=== PATIENT | female | born 1935 | race Caucasian/White ===

== ENCOUNTER 2018-09-04 12:04 | Emergency (ER) | payer OTHER ==
[~2018-09-04] VITALS: Ht 160 cm; Wt 80.7 kg
[~2018-09-04 12:04] MED LIST: ALBUTEROL0.09 MG/A2 INH; DAYPRO600 M1 PO; DIOVAN PO; GLUCOSAMINE PO; KEFLEX500 MG PO; LOSARTAN POTASS1 TA2 PO; NORFLEX100 MG PO; ROBITUSSIN AC 110 ML PO; SIMVASTATIN PO; SYNTHROID0.025 MG PO; VICODIN 5/500 505 MG PO; ZITHROMAX Z PA250 MG PO
[2018-09-04 12:32] LABS: BILIRUBIN NEGATIVE (NEGATIVE); BLOOD 2+ (NEGATIVE); CLARITY CLOUDY (CLEAR); COLOR YELLOW (YELLOW); GLUCOSE NEGATIVE (NEGATIVE); KETONE TRACE (NEGATIVE); LEUKO ESTERASE 3+ (NEGATIVE); NITRITE POSITIVE (NEGATIVE); SPECIFIC GRAVITY 1.025 (1.005-1.030); UROBILINOGEN 0.2 E.U./dl (0.2-1.0)
[2018-09-04 12:53] LABS: BACTERIA 3+; WBC TNTC wbc/hpf (0-5)
[2018-09-04 13:18] LABS: BASO # 0.1 10*3/uL (0.0-0.1); BASO % 0.6 % (0.0-1.0); EOS % 0.1 % (1.0-4.0); HEMATOCRIT 37.8 % (37.0-47.0); HEMOGLOBIN 12.8 g/dl (12.0-16.0); LYMPH # 0.4 10*3/uL (1.3-4.4); LYMPH % 5.1 % (27.0-41.0); MEAN CELL VOLUME 87.1 fl (81.0-99.0); MEAN CORPUSCULAR HGB 29.5 pg (27.0-31.0); MEAN CORPUSCULAR HGB CONC 33.9 g/dl (33.0-37.0); MONO # 0.7 10*3/uL (0.1-1.0); MONO % 8.6 % (3.0-9.0); NEUT # 6.6 10*3/uL (2.3-7.9); NEUT % 85.5 % (47.0-73.0); PLATELET COUNT AUTOMATED 199 10*3/uL (130-400); RED BLOOD COUNT 4.34 10*6/uL (4.10-5.10); RED CELL DISTRI WIDTH 13.1 % (0-14.5); WHITE BLOOD COUNT 7.7 10*3/uL (4.8-10.8)
[2018-09-04 13:42] LABS: ALBUMIN 3.3 gm/dl (3.1-4.5); ALKALINE PHOSPHATASE 29 U/L (45-117); BUN 25 mg/dl (7-24); CHLORIDE 105 mmol/L (98-107); CREATININE 1.05 mg/dL (0.55-1.02); LIPASE 86 U/L (73-393); POTASSIUM 4.2 mmol/L (3.5-5.1); SGOT/AST 16 IU/L (3-35); SGPT/ALT 16 U/L (12-78); SODIUM 137 mmol/L (136-145); TOTAL PROTEIN 6.6 gm/dL (6.4-8.2)
[2018-09-04] MEDS ORDERED: KEFLEX500 M1 PO (13:48)
== END 2018-09-04 14:29 | disposition home or self-care (01) ==
LOC: ED 12:04
PROVIDERS: Physician Assistant
DX: N39.0 Urinary tract infection, site not specified (principal); R53.1 Weakness; Z88.1 Allergy status to other antibiotic agents; Z88.6 Allergy status to analgesic agent; Z79.899 Other long term (current) drug therapy

== ENCOUNTER 2024-07-25 16:40 | Emergency (ER) | payer OTHER ==
[~2024-07-25] VITALS: Ht 162.5 cm; Wt 64.0 kg
[~2024-07-25 16:40] MED LIST changes: +AMLODIPINE BESYL5 MG PO; +ANASTROZOLE1 M1 PO; +CALTRATE PO; +CARAFATE1 G1 PO; +D3 DOTS50 MCG PO; +KEFLEX500 M1 PO; +LEVOTHYROXINE50 MCG PO; +LOSARTAN POTAS100 M1 PO; +OMEGA 3 PO; +OMEPRAZOLE MAGN20 MG PO; +OMNICEF300 MG PO; +PROLIA60 MG/M1 SQ; +SINGULAIR10 M1 PO; +XARE20MG PO
[2024-07-25] MEDS ORDERED: dilTIAZem Hydrochloride 25 MG/5 ML VIAL IV ONE (17:25)
[2024-07-25] MEDS ORDERED: SODIUM CHLORIDE 0.9% 1,000 ML IV ONE (17:25)
[2024-07-25] MEDS ORDERED: AMIODARONE HYD200 MG PO (17:47)
[2024-07-25] MEDS ORDERED: EXEMESTANE25 M2 PO (17:47)
[2024-07-25] MEDS ORDERED: METOPROLOL SUCC25 M2 PO (17:47)
[2024-07-25] MEDS ORDERED: DILTIAZEM 24HR180 MG PO (17:48)
[2024-07-25 17:50] LABS: BASO # 0.1 10*3/uL (0.0-0.1); BASO % 0.8 % (0.0-1.0); EOS # 0.1 10*3/uL (0.0-0.4); EOS % 2.3 % (1.0-4.0); HEMATOCRIT 39.4 % (37.0-47.0); MEAN CELL VOLUME 86.2 fl (81.0-99.0); MEAN CORPUSCULAR HGB CONC 32.5 g/dl (33.0-37.0); MONO # 0.6 10*3/uL (0.1-1.0); MONO % 9.3 % (3.0-9.0); NEUT # 4.2 10*3/uL (2.3-7.9); NEUT % 69.7 % (47.0-73.0); PLATELET COUNT AUTOMATED 211 10*3/uL (130-400); RED BLOOD COUNT 4.57 10*6/uL (4.10-5.10); RED CELL DISTRI WIDTH 14.2 % (0-14.5)
[2024-07-25 18:00] LABS: ACT PARTIAL THROMBO TIME 38.9 SECONDS (20.0-32.1)
[2024-07-25 18:12] LABS: TOTAL PROTEIN 6.3 gm/dL (6.0-8.0)
[2024-07-25 18:40] VITALS: BP 151/84
== END 2024-07-25 21:17 | disposition home or self-care (01) ==
LOC: ED 16:40
PROVIDERS: Internal Medicine
DX: I48.20 Chronic atrial fibrillation, unspecified (principal); R00.2 Palpitations; I10 Essential (primary) hypertension; Z88.6 Allergy status to analgesic agent; Z90.710 Acquired absence of both cervix and uterus; Z98.890 Other specified postprocedural states

== ENCOUNTER 2025-04-17 09:25 | Emergency (ER) | payer MEDICARE ==
[~2025-04-17] VITALS: Ht 162.5 cm; Wt 61.2 kg
[~2025-04-17 09:25] MED LIST changes: +AMIODARONE HYD200 MG PO; +DILTIAZEM 24HR180 MG PO; +EXEMESTANE25 M2 PO; +METOPROLOL SUCC25 M2 PO
[2025-04-17] MEDS ORDERED: IBUPROFEN 800 MG TAB PO ONE (10:15)
[2025-04-17] MEDS ORDERED: Albuterol Sulf/Ipratropium 3 ML VIAL NEB ONE (10:15)
== END 2025-04-17 11:48 | disposition home or self-care (01) ==
LOC: ED 09:25
DX: M79.672 Pain in left foot (principal); I10 Essential (primary) hypertension; E07.9 Disorder of thyroid, unspecified; I48.91 Unspecified atrial fibrillation; Z90.710 Acquired absence of both cervix and uterus; Z88.6 Allergy status to analgesic agent; Z98.890 Other specified postprocedural states